=== PATIENT | male | born 1930 | race Caucasian/White ===

== ENCOUNTER 2017-06-05 15:24 | Observation (INO) | payer OTHER ==
--- NOTE | 2017-06-05 15:34 | PDOC ---
Rapid Medical Evaluation Time Seen by Provider: 06/05/17 15:28 Medical Evaluation: Allergies Allergy/AdvReac Type Severity Reaction Status Date / Time No Known Allergies Allergy Verified 05/07/16 17:53 06/05/17 15:28 I have performed a brief in-person evaluation of this patient. The patient presents with a chief complaint of: pacemaker malfunction (needs new battery), worsening fatigue x 1 month Pertinent physical exam findings: crackles left lower lobe I have ordered the following: EKG, CXR, CBC, CMP, Mg, PT/INR, BNP The patient will proceed to the ED for further evaluation.
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
[2017-06-05 16:25] LABS: ANION GAP 5 (8-16); BILIRUBIN,TOTAL 0.8 mg/dL (0.2-1.0); CALCIUM 9.3 mg/dL (8.5-10.1); CO2 32 mmol/L (21-32); CREATININE 1.4 mg/dL (0.7-1.3); GLUCOSE,RANDOM 114 mg/dL (74-106); MAGNESIUM 2.1 mg/dL (1.8-2.4); SGOT/AST 18 U/L (15-37); SGPT/ALT 22 U/L (12-78); TOT PROT 7.2 g/dl (6.4-8.2)
[2017-06-05 16:26] LABS: BASOPHIL 0.2 % (0-2.0); EOSINOPHIL 1.1 % (0-4.5); MCH 31.7 pg (25.7-33.7); MCHC 34.3 g/dl (32.0-35.9); MEAN CELL VOLUME 92.2 fl (80-96); MEAN PLT VOLUME 9.9 fl (7.5-11.1); NEUTROPHILS 57.6 % (42.8-82.8); PLATELET COUNT 91 K/MM3 (134-434); RDW 14.2 % (11.9-15.9); WHITE BLOOD COUNT 6.1 K/mm3 (4.0-10.0)
[2017-06-05 16:28] LABS: ALK PHOS 67 U/L (45-117); CPK 65 IU/L (39-308); TROPONIN I 0.07 ng/ml (0.00-0.05)
[2017-06-05 16:33] LABS: INR 1.15 (0.82-1.09)
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
[2017-06-05] MEDS ORDERED: ATORVASTATIN CA 10 MG TABLET (FP) PO SCH (23:00)
[2017-06-05] MEDS ORDERED: SERTRALINE HCL 50 MG TABLET (FP) PO SCH (23:00)
[2017-06-05] MEDS ORDERED: TAMSULOSIN HCL 0.4 MG CAP.ER.24H (FP) PO SCH (23:00)
[2017-06-05] MEDS ORDERED: METOPROLOL SUCCINATE 50 MG TAB.SR.24H (FP) PO SCH (23:00)
[2017-06-05] MEDS ORDERED: ALBUTEROL SO4 18 GM HFA INHALER IH PRN (23:00)
[2017-06-05 23:03] VITALS: BMI 25.2
[2017-06-06 07:55] LABS: MCH 31.4 pg (25.7-33.7); MCHC 33.7 g/dl (32.0-35.9); MEAN CELL VOLUME 93.2 fl (80-96); MEAN PLT VOLUME 9.6 fl (7.5-11.1); PLATELET COUNT 72 K/MM3 (134-434); RDW 14.1 % (11.9-15.9); WHITE BLOOD COUNT 5.9 K/mm3 (4.0-10.0)
[2017-06-06 09:03] LABS: ANION GAP 7 (8-16); CALCIUM 8.9 mg/dL (8.5-10.1); CO2 29 mmol/L (21-32); GLUCOSE,RANDOM 96 mg/dL (74-106)
[2017-06-06 09:10] LABS: CPK 48 IU/L (39-308); CREATININE 1.2 mg/dL (0.7-1.3); MAGNESIUM 1.8 mg/dL (1.8-2.4); PHOSPHOROUS 2.6 mg/dL (2.5-4.9); TROPONIN I 0.09 ng/ml (0.00-0.05)
[2017-06-06] MEDS ORDERED: PANTOPRAZOLE 20 MG TABLET (FP) PO SCH (10:00)
[2017-06-06] MEDS ORDERED: HOPS PO SCH (10:00)
[2017-06-06] MEDS ORDERED: LISINOPRIL 10 MG TABLET (FP) PO SCH (10:00)
[2017-06-06] MEDS ORDERED: BERBERINE PO SCH (10:00)
[2017-06-06] MEDS ORDERED: VIT D3 VIT K PO SCH (10:00)
[2017-06-06] MEDS ORDERED: [UNRECOGNIZED DRUG - OTHER] PO SCH (10:00)
[2017-06-06] MEDS ORDERED: SPIRONOLACTONE 25 MG TABLET (FP) PO SCH (10:00)
[2017-06-06] MEDS ORDERED: FUROSEMIDE 20 MG TABLET (FP) PO SCH (10:00)
[2017-06-06] MEDS ORDERED: SOLIFENACIN SUCCINATE 5 MG TAB (FP) PO SCH (10:00)
[2017-06-06] MEDS: CALCIUM 500MG/VIT-D 200 UNITS COMBO TABLET (FP) PO SCH ×2 (10:15→14:53)
[2017-06-06] MEDS: CYANOCOBALAMIN 1,000 MCG TABLET (FP) PO SCH ×2 (10:15→14:53)
[2017-06-06] MEDS ORDERED: BUPIVACAINE HCL/PF 0.5% (5MG/ML) 10 ML VIAL ONE (10:23)
[2017-06-06] MEDS ORDERED: LIDOCAINE HCL 1%, 10 MG/ML (20ML VIAL) ONE (10:23)
[2017-06-06 10:24] VITALS: TEMP 97.4
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
[2017-06-06] MEDS ORDERED: ceFAZolin SODIUM 1 GM VIAL IVPB ONE (11:35)
[2017-06-06] MEDS ORDERED: BUPIVACAINE HCL/PF 0.5% (5MG/ML) 10 ML VIAL IJ ONE (11:40)
[2017-06-06] MEDS ORDERED: LIDOCAINE HCL 1%, 10 MG/ML (20ML VIAL) PNB ONE ×2 (11:40)
[2017-06-06] MEDS ORDERED: VANCOMYCIN 1,000 MG in DEXTROSE 5%-WATER - 250 ML IVPB ONE (12:00)
[2017-06-06] MEDS ORDERED: BACITRACIN 50,000 UNITS VIAL NR ONE (12:04)
--- NOTE | 2017-06-06 12:25 | OPR ---
s/p dual chamber ppm pulse generator replacement dx pacemaker battery at end of life estimated blood loss 15 cc anesthesia ronan leal old medtronic pacemaker pulse generator was removed and sent to pathology return to floor no heavy lifting lue no showering x 5 days no heparin/lovenox x 48 hours
--- NOTE | 2017-06-06 14:27 | DS ---
Physical Exam: SUBJECTIVE: Patient seen and examined. slight discomfort at PPM site. dneies CP , sob, fever, chills, N/v/C/D OBJECTIVE: Vital Signs Period Temp Pulse Resp BP Sys/Eugene Pulse Ox Last 24 Hr 97.4 F-98.6 F 65-66 17-20 121-154/75-83 97-99 PHYSICAL EXAM GENERAL: The patient is awake, alert, and fully oriented, in no acute distress. HEAD: Normal with no signs of trauma. EYES: PERRL, extraocular movements intact, sclera anicteric, conjunctiva clear. ENT: Ears normal, nares patent, oropharynx clear without exudates, moist mucous membranes. NECK: Trachea midline, full range of motion, supple. LUNGS: Breath sounds equal, clear to auscultation bilaterally, no wheezes, no crackles, no accessory muscle use. HEART: Regular rate and rhythm, S1, S2 without murmur, rub or gallop. +bandage to L chest with bandage, c/d/i. mildly tender ABDOMEN: Soft, nontender, nondistended, normoactive bowel sounds, no guarding, no rebound, no hepatosplenomegaly, no masses. EXTREMITIES: 2+ pulses, warm, well-perfused, no edema. NEUROLOGICAL: Cranial nerves II through XII grossly intact. Normal speech, gait not observed. PSYCH: Normal mood, normal affect. SKIN: Warm, dry, normal turgor, no rashes or lesions noted. LABS Laboratory Results - last 24 hr 06/05/17 06/05/17 06/05/17 15:45 15:45 15:45 WBC 6.1 RBC 4.17 Hgb 13.2 Hct 38.5 MCV 92.2 MCH 31.7 MCHC 34.3 RDW 14.2 Plt Count 91 L MPV 9.9 Neutrophils % 57.6 Lymphocytes % 34.3 D Monocytes % 6.8 Eosinophils % 1.1 Basophils % 0.2 PT with INR 13.00 H INR 1.15 H Sodium 139 Potassium 4.3 Chloride 102 Carbon Dioxide 32 Anion Gap 5 L BUN 26 H D Creatinine 1.4 H D Creat Clearance w eGFR 48.05 Random Glucose 114 H Calcium 9.3 Phosphorus Magnesium 2.1 D Total Bilirubin 0.8 AST 18 D ALT 22 D Alkaline Phosphatase 67 Creatine Kinase 65 Troponin I 0.07 H D B-Natriuretic Peptide 4651.78 H Total Protein 7.2 Albumin 4.0 D 06/06/17 06/06/17 06:45 06:45 WBC 5.9 RBC 3.93 L Hgb 12.3 Hct 36.6 MCV 93.2 MCH 31.4 MCHC 33.7 RDW 14.1 Plt Count 72 L D MPV 9.6 Neutrophils % No Result Required. Lymphocytes % No Result Required. Monocytes % Eosinophils % Basophils % PT with INR INR Sodium 141 Potassium 3.9 Chloride 105 Carbon Dioxide 29 Anion Gap 7 L BUN 24 H Creatinine 1.2 Creat Clearance w eGFR Random Glucose 96 Calcium 8.9 Phosphorus 2.6 Magnesium 1.8 Total Bilirubin AST ALT Alkaline Phosphatase Creatine Kinase 48 Troponin I 0.09 H B-Natriuretic Peptide Total Protein Albumin HOSPITAL COURSE: Date of Admission:06/05/17 Date of Discharge: 06/06/17 Admitting diagnosis: pacemaker pulse generator failure Pre hospital course 85 year old male with a past medical history that is significant for anemia, HTN , CHF, CAD, PPM who presented to the ED for lethargy. He reports that he has become increasingly lethargic over the past few days to weeks. He had a PPM check today which revealed that he needed a generator change. He reports feeling like he did in past when he needed his battery changed. Subsequent hospital course tele observation. evaluated by EP and generator exchanged. tolerated well with no complication.falsely elevated BNP due to Juni as pt did not exhibit any clinical signs of CHF. mild JUNI which resolved with IV fluids. mild tropinemia likely due to JUNI. d/w cardio who is aware an no intervention at this time. will f/u in office in 2 weeks. Minutes to complete discharge: 45 Discharge Summary Reason For Visit: MALFUNCTION OF CARDIAC PACEMAKER Current Active Problems Malfunction of cardiac pacemaker battery (Acute) Condition: Stable - Instructions Diet, Activity, Other Instructions: You were admitted to the hospital due to the generator on your battery being at end of life. This was changed in the hospital No heavy lifting for 2 weeks. nothing greater than 5 pounds. no showering x 5 days follow up with senior oracle database developer in 2 weeks on May Follow up with your primary care doctor in 1 week Return to the ER if you develop chest pain or shortness of breath. Referrals: Juan Carlos Wang MD [Staff Physician] - Felix García MD [Primary Care Provider] - - Home Medications Comprehensive Discharge Medication List: Ambulatory Orders Lisinopril [Prinivil -] 10 mg PO DAILY 09/06/14 Metoprolol Succinate [Toprol XL -] 50 mg PO HS 09/06/14 Oxybutynin Chloride [Ditropan Xl] 5 mg PO DAILY 09/06/14 Omeprazole 20 mg PO DAILY 06/17/15 Sertraline HCl [Zoloft] 100 mg PO HS 06/17/15 Simvastatin 10 mg PO HS 06/17/15 Tamsulosin HCl 0.4 mg PO DAILY 06/17/15 Albuterol Sulfate Inhaler - [Ventolin HFA Inhaler -] 2 inh PO BID #1 inh Calcium Citrate/Vitamin D3 [Calcium Citrate - Vit D Caplet] 1 each PO DAILY 03/14 Cyanocobalamin (Vitamin B-12) [B-12] 1,000 mcg PO DAILY 06/05/17 Furosemide [Lasix -] 20 mg PO DAILY 06/05/17 Spironolactone 25 mg PO DAILY 06/05/17 Vit D3-Vit K/Berberine/Hops [Ostera Tablet] 1 each PO DAILY 06/05/17 This patient is new to me today: Yes Date on this admission: 06/06/17 Emergency Visit: Yes ED Registration Date: 06/05/17 Care time: The patient presented to the Emergency Department on the above date and was hospitalized for further evaluation of their emergent condition. Critical Care patient: No - Discharge Referral Referred to [facility] No
[2017-06-06 15:58] VITALS: BP 134/70; PULSE 60
--- NOTE | 2017-06-06 16:35 | EKG ---
Test Reason : Blood Pressure : / mmHG Vent. Rate : 065 BPM Atrial Rate : 065 BPM P-R Int : 000 ms QRS Dur : 194 ms QT Int : 514 ms P-R-T Axes : 000 -60 119 degrees QTc Int : 534 ms Atrial-sensed ventricular-paced rhythm with prolonged AV conduction ABNORMAL ECG WHEN COMPARED WITH ECG OF 17-NOV-2015 20:27, VENT. RATE HAS DECREASED BY 4 BPM Confirmed by AISHA KHAN, ISABEL ([id number]) on 06/06/2017 4:34:38 PM Referred By: Confirmed By:ISABEL LEONARD MD
[2017-06-06 17:24] LABS: PLATELET ESTIMATE DECREASED (NORMAL); REACTIVE LYMPHOCYTES 2 % (0-80); SMUDGE CELLS FEW; TOTAL CELLS COUNTED 100
--- NOTE | 2017-06-09 13:46 | OP ---
DATE OF OPERATION: 06/06/2017 PROCEDURE: Dual-chamber pacemaker pulse generator replacement. SURGEON: Nikki Jean-Baptiste MD ANESTHESIOLOGIST: Yair Enciso CRNA No complications. Minimal blood loss. This is an 86-year-old male with a past medical history of complete heart block, status post dual-chamber pacemaker in 1998, status post pulse generator replacement in 2008, coronary artery disease, status post CABG with device now at end-of-life; here for urgent pulse generator replacement. Informed consent was obtained and adequate time for questions and answers was offered to the patient prior to the procedure. PROCEDURE: Preoperative antibiotics were administered. The procedure was performed during continuous ECG monitoring and with both conscious sedation and local anesthesia administered. Oxygen saturation and exhaled CO2 content were monitored continuously. The left infraclavicular region was prepped and broadly draped. Following administration of local anesthesia, an incision was made at the prior incision site in the left chest area superficial to the device. Using a combination of blunt and sharp dissection with cautious attention to hemostasis, the old device generator was successfully explanted. Hemostasis was secured. The leads were tracked and parameters were stable. All sponges were removed and the wound was irrigated with antibiotic solution. The pulse generator was then connected to the proximal portion of the pacemaker lead adaptor and, after confirming the adequacy of the electrode connections, the device was placed in the pocket. The incision was then closed in layers using absorbable sutures. Dermabond was applied. A sterile bandage was applied. Proper device function was confirmed and the patient was transferred to the postprocedure monitoring area for additional observation. Final device settings were as follows: [employer] Accolade [id number] dual-chamber pacemaker, serial No. [id number], implanted June 06, 2017. DDD 60 to 100 beats/min. The atrial lead was a Medtronic [id number], serial No. [id number], implanted February 03, 1999. Bipolar polarity, P-waves 2.0 mV, sensitivity 0.75 mV, atrial impedance 406 Ohms, atrial threshold 0.8 V at 0.5 msec, amplitude 2.5 V at 0.5 msec. ventricular lead was a Medtronic [id number], serial No. [id number], implanted February 03, 1999. Bipolar polarity, R-waves unable to be sensed at 30 beats/min, sensitivity 0.4 mV as previously set, ventricular impedance 544 Ohms, ventricular threshold 0.6 V at 0.5 msec, amplitude 2.5 V at 0.5 msec. NIKKI JEAN-BAPTISTE M.D. [id number] CC: Juan Carlos Wang MD
--- NOTE | 2017-06-10 16:41 | PATH ---
Surgical Pathology Report Patient Name: ARELY TOMAS Med. Rec. #: [id number] /Age/Gender: 1930 (Age: 86) / M Account: [id number] Location: [facility] PEDS/ADOL Taken: 06/06/2017 Received: 06/07/2017 Reported: 06/10/2017 Physicians: Deloris Barrera M.D. Specimen(s) Received EXPLANT PACEMAKER GENERATOR Clinical History End of life generator Final Diagnosis PACEMAKER GENERATOR, EXPLANTATION: WAITER/WAITRESS TAVERN. MACROSCOPIC DIAGNOSIS. Electronically Signed Trinity Bowman M.D. Gross Description Received fresh labeled "explant pacemaker generator," is a 4.6 x 4.2 x 0.7 cm rodriguez metallic device, consistent with a battery. The specimen has the following inscription: "Medtronic Versa [id number] SN: [id number]." No soft tissue is present. No sections are submitted, gross only. /06/07/2017 saudi06/07/2017
== END 2017-06-06 16:49 | disposition home or self-care (01) ==
LOC: JER 15:24 → JERBED 17:35 → J4S 22:41
PROVIDERS: ADMIT Internal Medicine; ATTEND Internal Medicine
PROC: 0JPT0PZ Removal of Cardiac Rhythm Related Device from Trunk Subcutaneous Tissue and Fascia, Open Approach (ICD-10-PCS; principal; 2017-06-05)
PROC: 0JH606Z Insertion of Pacemaker, Dual Chamber into Chest Subcutaneous Tissue and Fascia, Open Approach (ICD-10-PCS; 2017-06-05)
DX: T82.111A Breakdown (mechanical) of cardiac pulse generator (battery), initial encounter (principal); Y83.8 Other surgical procedures as the cause of abnormal reaction of the patient, or of later complication, without mention of misadventure at the time of the procedure; Y92.9 Unspecified place or not applicable; I10 Essential (primary) hypertension; I25.10 Atherosclerotic heart disease of native coronary artery without angina pectoris; I50.9 Heart failure, unspecified; E78.5 Hyperlipidemia, unspecified; D64.9 Anemia, unspecified; F43.10 Post-traumatic stress disorder, unspecified; N40.0 Benign prostatic hyperplasia without lower urinary tract symptoms; R77.8 Other specified abnormalities of plasma proteins; Z45.010 Encounter for checking and testing of cardiac pacemaker pulse generator [battery]; Z85.46 Personal history of malignant neoplasm of prostate; Z95.1 Presence of aortocoronary bypass graft; Z92.3 Personal history of irradiation
CPT/HCPCS: 33228; 36415; 71010-TC; 80048; 80053; 82550; 83735; 83880; 84100; 84484; 85025; 85610; 88300-TC; 93005; 93010; 99285-25; G0378

== ENCOUNTER 2018-11-25 13:14 | Inpatient (IN) | payer OTHER ==
[2018-11-25 13:24] VITALS: BMI 25.1
--- NOTE | 2018-11-25 13:40 | PDOC ---
History of Present Illness - General Chief Complaint: Edema Stated Complaint: SENT BY PCP - History of Present Illness Initial Comments: 11/25/18 14:10 88M pmh of complete heart block s/p Medtronic dual chamber pacemaker 1998 s/p ppc 2008, htn, chf, CAD s/p cabg, presents to the emergency department after being sent by his housing specialist Dr. Talley for worsening bilateral leg edema and shortness of breath on exertion over the course of the past week. No recent change in medication except for decreased Lasix in september from 25 to 20mg because he was complaining of urinating too much. He states that the edema is creeping up all the was up to his lower abdomen. Denies chest pain, dizziness. Past History - Past Medical History Allergies/Adverse Reactions: Allergies Allergy/AdvReac Type Severity Reaction Status Date / Time No Known Allergies Allergy Verified 11/25/18 13:21 Home Medications: Ambulatory Orders Lisinopril [Prinivil -] 10 mg PO DAILY 09/06/14 Oxybutynin Chloride [Ditropan Xl] 5 mg PO DAILY 09/06/14 Omeprazole 20 mg PO DAILY 06/17/15 Simvastatin 10 mg PO HS 06/17/15 Tamsulosin HCl 0.4 mg PO DAILY 06/17/15 Calcium Citrate/Vitamin D3 [Calcium Citrate - Vit D Caplet] 1 each PO DAILY 03/14 Cyanocobalamin (Vitamin B-12) [B-12] 1,000 mcg PO DAILY 06/05/17 Furosemide [Lasix -] 20 mg PO DAILY 06/05/17 Spironolactone 25 mg PO DAILY 06/05/17 Vit D3-Vit K/Berberine/Hops [Ostera Tablet] 1 each PO DAILY 06/05/17 Metoprolol Tartrate 75 mg PO DAILY 11/25/18 Sertraline HCl 75 mg PO DAILY 11/25/18 Anemia: Yes Asthma: No Cancer: Yes (PROSTATE) Cardiac Disorders: Yes CVA: No COPD: No CHF: Yes Dementia: No Diabetes: No GI Disorders: No Disorders: No HTN: Yes Hypercholesterolemia: Yes Liver Disease: No Psychiatric Problems: Yes (PTSD) Seizures: No Thyroid Disease: No - Surgical History Abdominal Surgery: No Appendectomy: No Cardiac Surgery: Yes (PACEMAKER ByPASS) Cholecystectomy: No GI Surgery: Yes (POLYP FROM COLON) Lung Surgery: No Neurologic Surgery: No Orthopedic Surgery: No - Immunization History Immunization Up to Date: Yes - Suicide/Smoking/Psychosocial Hx Smoking History: Former smoker Have you smoked in the past 12 months: No If you are a former smoker, when did you quit?: 1962 Information on smoking cessation initiated: No Hx Alcohol Use: No Drug/Substance Use Hx: No Substance Use Type: None Hx Substance Use Treatment: No *Physical Exam - Vital Signs Last Vital Signs Temp Pulse Resp BP Pulse Ox 98 F 62 20 106/52 L 95 11/25/18 13:21 11/25/18 13:21 11/25/18 13:21 11/25/18 13:21 11/25/18 13:21 ED Treatment Course - LABORATORY CBC & Chemistry Diagram: 11/25/18 14:15 11/25/18 14:15 Medical Decision Making - Medical Decision Making 11/25/18 14:55 This is likely CHF exacerbation due to the patient worsening sob obn exertion and ascending pitting edama. , patient has a history of it. We will r/o pneumonia and CO with cxr and trops +basic labs. POCUS of the abdomen rteveals ascites. Will r/o DVT with b/l duplex. Spoke to Dr. Lua who agrees with the diagnosis of chf exacerbation and treatment with iv lasix, will come see the patient in the ER. 11/25/18 15:48 Bnp more elevated than it's ever been [id number] Elevated trops of 0.09 >0.1 EKG : AV dual dual paced rhythm Abdomen ultrasound and LE duplex pending. Will admit to telemetry for diuresis. Admitted to hospitalist under Dr. Berkowitz. *DC/Admit/Observation/Transfer Diagnosis at time of Disposition: Acute on chronic diastolic CHF (congestive heart failure) - Discharge Dispostion Decision to Admit order: Yes - Referrals - Patient Instructions - Post Discharge Activity
[2018-11-25] MEDS ORDERED: FUROSEMIDE 40 MG/4 ML INJECTABLE VIAL IVPUSH ONE (13:58)
[2018-11-25] MEDS ORDERED: FUROSEMIDE 40 MG/4 ML INJECTABLE VIAL ONE (14:10)
--- NOTE | 2018-11-25 14:30 | PDOC ---
Documentation entered by Essie Del Valle SCRIBE, acting as scribe for Margot Mariee MD. Margot Mariee MD: This documentation has been prepared by the scribe, Essie Del Valle SCRIBE, under my direction and personally reviewed by me in its entirety. I confirm that the documentation accurately reflects all work, treatment, procedures, and medical decision making performed by me. Attending Attestation - Resident Resident Name: Frederick Yang - ED Attending Attestation I have performed the following: I have examined & evaluated the patient, The case was reviewed & discussed with the resident, I agree w/resident's findings & plan - HPI HPI: 11/25/18 14:28 The patient is a 88 year old male with a significant past medical history of anemia, hypertension, hyperlipidemia, CAD s/p triple bypass, CHF, pacemaker, prostate ca, traumatic PTX, pneumonia and PTSD from [place] war who presents to the emergency department with worsening bilateral lower extremity edema worsening x 1 month. The patient reports some associated pain behind his knees with his lower extremity swelling. It is noted that the patient had a dosage change in his lasix from 25 to 20mg, also on spirnolactone. He also endorses CRUZ , with walking x several weeks as well. - Physicial Exam PE: 11/25/18 14:26 Agree with the resident's HPI and PE as documented in the electronic medical record. NAD, well appearing, PERRL, EOMI, nl conjunctiva, anicteric; neck supple. anterior sternotomy scar, Left upper chest wall PPm palpated. lungs with bibasilar crackles, RRR, no murmur. abdomen soft nontender. LOPEZ x4, no focal neuro deficits. 4+ bilateral pitting peripheral edema, up pretibia. normal color for ethnicity, WWP. - Medical Decision Making 11/25/18 14:25 I, Margot Mariee MD, attest that this document has been prepared under my direction and personally reviewed by me in its entirety. I further attest, that it accurately reflects all work, treatment, procedures and medical decision -making performed by me. See HPI for details Vital signs reviewed, wnl. DDx SOB: ACS, PE, PTX, CHF exac, pulmonary edema, pleurisy, pneumonia, viral syndrome. effusion. anemia, electrolyte/metabolic derangements. Prior notes reviewed, including admissions, discharges and consultations. laboratory results and imaging reviewed, basic labs and lytes wnl, Cr 1.6 - close to baseline. mild anemia, will check guaiac. CXR_congestive changes, cardiomegaly, sternotomy scar. Cardiac panel_positive trop, BNP elevation - both higher than previous EKG Atrial Ventricular paced pattern, neg for Sgarbossa's criteria, appropriate discordance, no concordance changes. wide QRS, ST and T wave segments and morphology c/w LBBB/paced pattern.. Nonspecific T wave abnormalities ED course - bedside pocus echo and thoracic exam with scan b lines, severely depressed EF ; pleural effusion on right; abdominal FF suspicious for Ascities. will get official Abdomen US - lasix diuresis with 40mg IV for CHF exacerbation clinically - cards cs with Dr Wang. admit for CHF exacerbation, tele. 11/25/18 15:48 11/25/18 15:52 11/25/18 15:56 Heart Score/ECG Review #1 ECG reviewed & interpreted by me at: 03:45 General ECG Interpretation: Normal Rate Compared to previous ECG there are: No significant change 11/25/18 15:57 EKG Atrial Ventricular paced pattern, neg for Sgarbossa's criteria, appropriate discordance, no concordance changes. wide QRS, ST and T wave segments and morphology c/w LBBB/paced pattern.. Nonspecific T wave abnormalities Procedures - Bedside Ultrasound Bedside Ultrasound: Cardiac Remarks: 11/25/18 15:44 POCUS echo and thoracic exam performed and documented/saved, indication includes chest pain/dyspnea. views obtained (PSLA, PSS, A4, SX, bilateral lung mario). Findings include severely depressed EF <30% on visual estimation with wire visualized in RA/RV chamber, no significant pericardial effusion, +right sided pleural effusion; left sided anterior B lines present. Normal aortic root <4cm. RV<LV. Incidentally with ascites noted in splenorenal and hepatorenal recess extended to suprapubic views with FF noted. Impression: abdominal FF ascites, severely depressed EF c/w heart failure, scant B lines. 11/25/18 15:47
[2018-11-25 14:32] LABS: HEMATOCRIT 31.2 % (35.4-49); HEMOGLOBIN 10.5 GM/dL (11.7-16.9); MCH 31.9 pg (25.7-33.7); MCHC 33.7 g/dl (32.0-35.9); MEAN CELL VOLUME 94.9 fl (80-96); MEAN PLT VOLUME 8.2 fl (7.5-11.1); PLATELET COUNT 80 K/MM3 (134-434); RBC 3.29 M/mm3 (4.00-5.60); WHITE BLOOD COUNT 4.2 K/mm3 (4.0-10.0)
[2018-11-25 15:04] LABS: ALBUMIN 3.4 g/dl (3.4-5.0); ALK PHOS 63 U/L (45-117); ANION GAP 7 MMOL/L (8-16); BILIRUBIN,TOTAL 0.6 mg/dL (0.2-1); BLOOD UREA NITROGEN 47 mg/dL (7-18); CALCIUM 9.6 mg/dL (8.5-10.1); CHLORIDE 105 mmol/L (98-107); CO2 28 mmol/L (21-32); CREATININE 1.6 mg/dL (0.55-1.3); GLUCOSE,RANDOM 103 mg/dL (74-106); N-TERMINAL BNP 12879.6 pg/ml (5-450); POTASSIUM 4.8 mmol/L (3.5-5.1); SGOT/AST 13 U/L (15-37); SGPT/ALT 13 U/L (13-61); SODIUM 140 mmol/L (136-145); TOT PROT 6.2 g/dl (6.4-8.2)
[2018-11-25 15:50] LABS: EPI CELLS 5.6 /HPF (0-5/HPF); URINE APPEARANCE CLEAR; URINE BACTERIA 173.4 /hpf (NEGATIVE); URINE BILIRUBIN NEGATIVE (NEGATIVE); URINE CASTS 11 /lpf (0-8); URINE COLOR YELLOW; URINE GLUCOSE (UA) NEGATIVE (NEGATIVE); URINE KETONE NEGATIVE (NEGATIVE); URINE LEUK ESTERASE 1+ (NEGATIVE); URINE NITRITE NEGATIVE (NEGATIVE); URINE PROTEIN NEGATIVE (NEGATIVE); URINE RBC 23 /hpf (0-4); URINE UROBILINOGEN 0.2 mg/dL (0.2-1.0); URINE WBC 5 /hpf (0-5)
--- NOTE | 2018-11-25 17:11 | PN ---
Teaching Attending Note Name of Resident: Susannah Post ATTENDING PHYSICIAN STATEMENT I saw and evaluated the patient. I reviewed the resident's note and discussed the case with the resident. I agree with the resident's findings and plan as documented with exceptions below. SUBJECTIVE: 88 yom with PMHx of LV systolic/diastolic dysfunction, CAD s/p CABG 1997, CHB s/ p Medtronic change, PPM 1998, changed 2008 and 05/2017, last, HTN, HLD, comes with progressive leg swelling over last 1.5-2 months. Over last 3 weeks, has noticed abdominal distension, bloating, scrotal swelling, and dyspnea with minimal activity, was sent to ED today by Dr. Wang for IV diuresis and further treatment. patient received lasix 40 mg IV in the ED, reports urinated a lot. Overall feels a little better Unsure if remembers to take his lasix daily, does agree to dietary non compliance, salt in diet No fevers, chills, URI like symptoms, chest pain, palpitations, dizziness, abdominal or urinary symptoms. OBJECTIVE: Vital Signs Period Temp Pulse Resp BP Sys/Eugene Pulse Ox Last 24 Hr 98 F 60-62 18-20 106-123/52-65 95-100 Intake & Output 11/22/18 11/23/18 11/24/18 11/25/18 23:59 23:59 23:59 23:59 Weight 180 lb GENERAL: Awake, alert, and fully oriented, in no acute distress. HEAD: Normal with no signs of trauma. EYES: Pupils equal, round and reactive to light, extraocular movements intact, sclera anicteric, conjunctiva clear. No lid lag. EARS, NOSE, THROAT: Ears normal, nares patent, oropharynx clear without exudates. Moist mucous membranes. NECK: soft, supple, neck vein distension LUNGS: bilateral fine rales extending upto mid lungs, good air entry bilaterally HEART: Regular rate and rhythm, normal S1 and S2 ABDOMEN: Soft, distended, NT throughout, epigastric hernia, no voluntary or involuntary guarding or rigidity, positive bowel sounds MUSCULOSKELETAL: no spinal or CVA tenderness, LE ROM limited UPPER EXTREMITIES: 2+ pulses, warm, well-perfused. No cyanosis. No clubbing. No peripheral edema, ecchymotic areas. GENITAL: Scrotal swelling, dias catheter in place LOWER EXTREMITIES: 2+ pitting lower extremity edema with skin induration NEUROLOGICAL: AAOx3, facial symmetry, no pronator drift, power upper 5/5, LE 4/ 5 more on left, sensation intact and symmetric to light touch PSYCHIATRIC: Cooperative. Good eye contact. Appropriate mood and affect. SKIN: Warm, dry, normal turgor, no rashes or lesions noted, normal capillary refill. Home Medications Medication Instructions Recorded Lisinopril [Prinivil -] 10 mg PO DAILY 09/06/14 Oxybutynin Chloride [Ditropan Xl] 5 mg PO DAILY 09/06/14 Omeprazole 20 mg PO DAILY 06/17/15 Simvastatin 10 mg PO HS 06/17/15 Tamsulosin HCl 0.4 mg PO DAILY 06/17/15 Calcium Citrate/Vitamin D3 1 each PO DAILY 06/05/17 [Calcium Citrate - Vit D Caplet] Cyanocobalamin (Vitamin B-12) 1,000 mcg PO DAILY 06/05/17 [B-12] Furosemide [Lasix -] 20 mg PO DAILY 06/05/17 Spironolactone 25 mg PO DAILY 06/05/17 Vit D3-Vit K/Berberine/Hops 1 each PO DAILY 06/05/17 [Ostera Tablet] Metoprolol Tartrate 75 mg PO DAILY 11/25/18 Sertraline HCl 75 mg PO DAILY 11/25/18 Active Medications Atorvastatin Calcium (Lipitor -) 20 mg PO HS [facility] Furosemide (Lasix Injection -) 40 mg IVPB BID@0600,1400 [facility] Heparin Sodium (Porcine) (Heparin -) 5,000 unit SQ TID [facility] Non-Formulary Medication (Oxybutynin Chloride [Ditropan Xl]) 5 mg PO DAILY [facility] Pantoprazole Sodium (Protonix -) 20 mg PO DAILY [facility] Sertraline HCl 25 mg/ (Sertraline HCl 50 mg) 75 mg PO DAILY [facility] Spironolactone (Aldactone -) 25 mg PO DAILY [facility] Tamsulosin HCl (Flomax -) 0.4 mg PO DAILY [facility] Laboratory Results - last 24 hr 11/25/18 11/25/18 11/25/18 14:15 14:15 14:15 WBC 4.2 RBC 3.29 L Hgb 10.5 L Hct 31.2 L MCV 94.9 MCH 31.9 MCHC 33.7 RDW 16.0 H Plt Count 80 L MPV 8.2 D Sodium 140 Potassium 4.8 Chloride 105 Carbon Dioxide 28 Anion Gap 7 L BUN 47 H Creatinine 1.6 H Creat Clearance w eGFR 41.00 Random Glucose 103 Calcium 9.6 Total Bilirubin 0.6 AST 13 L ALT 13 Alkaline Phosphatase 63 Troponin I 0.10 H Cancelled B-Natriuretic Peptide 95524.6 H Cancelled Total Protein 6.2 L Albumin 3.4 Urine Color Urine Appearance Urine pH Ur Specific Orient Urine Protein Urine Glucose (UA) Urine Ketones Urine Blood Urine Nitrite Urine Bilirubin Urine Urobilinogen Ur Leukocyte Esterase Urine WBC (Auto) Urine RBC (Auto) Urine Casts (Auto) U Epithel Cells (Auto) U Sm Round Cell (Auto) Urine Bacteria (Auto) 11/25/18 15:20 WBC RBC Hgb Hct MCV MCH MCHC RDW Plt Count MPV Sodium Potassium Chloride Carbon Dioxide Anion Gap BUN Creatinine Creat Clearance w eGFR Random Glucose Calcium Total Bilirubin AST ALT Alkaline Phosphatase Troponin I B-Natriuretic Peptide Total Protein Albumin Urine Color Yellow Urine Appearance Clear Urine pH 5.0 D Ur Specific Orient 1.007 L Urine Protein Negative Urine Glucose (UA) Negative Urine Ketones Negative Urine Blood 2+ H Urine Nitrite Negative Urine Bilirubin Negative Urine Urobilinogen 0.2 Ur Leukocyte Esterase 1+ H Urine WBC (Auto) 5 Urine RBC (Auto) 23 Urine Casts (Auto) 11 U Epithel Cells (Auto) 5.6 U Sm Round Cell (Auto) None seen Urine Bacteria (Auto) 173.4 CXR with bilateral congestion EKG v pacing ASSESSMENT AND PLAN: 88 yom with PMHx of LV systolic/diastolic dysfunction, CAD s/p CABG 1997, CHB s/ p Medtronic change, PPM 1998, changed 2008 and 05/2017, last, HTN, HLD admitted with CHF -Acute systolic +/- diastolic heart failure exacerbation -SHILPA, suspect from CHF -elevated troponin, suspect demand type II NSTEMI from above, rather than ACS -Asymptomatic bacteruria -CAD s/p CABG -CHB s/p PPM -HTN -HLD Plan: lasix 20 mg IV x 1. Start Lasix 40 mg IV BID, continue aldactone Dias placed in ED. strict I/os, daily weights. 2D echo. Cardiology consult Dr. Wang, case discussed with him Continue flomax/statin/oxybutynin. U/A noted, monitor clinically off abx for now DVTPPX heparin Will need PT eval and CM consult for dispo planning once improved Plan discussed with patient and daughter at bedside in detail, all questions answered. Total admit time spent 65 min.
--- NOTE | 2018-11-25 17:24 | HP ---
CHIEF COMPLAINT: SOB and swelling in legs PCP: Dr García Roto Rooter Operator: Dr Wang HISTORY OF PRESENT ILLNESS: The patient is 88 year old male with a PMH of systolic CHF, triple bypass surgery in 1997, s/p pacemaker in (1998, 2008, 2016- [employer]), HTN, hyperlipidemia, anemia, that presented to the hospital referred by his Roto Rooter Operator. He has been complaining of SOB that has been progressively worse for the past 2 months and got worse especially 3 weeks ago, associated with worsened lower extremity swelling up to his abdomen. He has been sleeping on 3 pillows for long time and reports increased SOB with minimal physical activity. He denies recent medication changes.He states that since his is in the hospital and then rehab, he hasn't been complaint with low sodium diet. He reports weight gain recently but doesn't know how much exactly. The patient denies chest pain, palpitations, dizziness, LOC. He ambulates with walker and lives alone. ER course was notable for: (1)Lasix (2)abdominal US (3)Cardiology consultation PAST MEDICAL HISTORY: as above and nephrolithiasis, s/p prostate Ca, radiation therapy, broken ribs and pneumothorax after fall PAST SURGICAL HISTORY: s/p prostate surgery, abdominal hernia repair x 2, triple bypass, pacemaker Social History: Smoking: Alcohol: Drugs: Family History: Mother: leukemia, at age 33 father: at age 90 sister: non Hodgkin Lymphoma , 3 healthy children, 5 grandchildren Occupation: used to work in communication and in grocery store Allergies No Known Allergies Allergy (Verified 11/25/18 13:21) HOME MEDICATIONS: Home Medications Medication Instructions Recorded Lisinopril [Prinivil -] 10 mg PO DAILY 09/06/14 Oxybutynin Chloride [Ditropan Xl] 5 mg PO DAILY 09/06/14 Omeprazole 20 mg PO DAILY 06/17/15 Simvastatin 10 mg PO HS 06/17/15 Tamsulosin HCl 0.4 mg PO DAILY 06/17/15 Calcium Citrate/Vitamin D3 1 each PO DAILY 06/05/17 [Calcium Citrate - Vit D Caplet] Cyanocobalamin (Vitamin B-12) 1,000 mcg PO DAILY 06/05/17 [B-12] Furosemide [Lasix -] 20 mg PO DAILY 06/05/17 Spironolactone 25 mg PO DAILY 06/05/17 Vit D3-Vit K/Berberine/Hops 1 each PO DAILY 06/05/17 [Ostera Tablet] Metoprolol Tartrate 75 mg PO DAILY 11/25/18 Sertraline HCl 75 mg PO DAILY 11/25/18 REVIEW OF SYSTEMS CONSTITUTIONAL: loss of appetite, weight change Absent: fever, chills, diaphoresis, generalized weakness, malaise, HEENT: Absent: rhinorrhea, nasal congestion, throat pain, CARDIOVASCULAR: peripheral edema Absent: chest pain, syncope, palpitations, irregular heart rate, lightheadedness RESPIRATORY: shortness of breath, dyspnea with exertion, orthopnea, Absent: cough, wheezing, GASTROINTESTINAL: Absent: abdominal pain, abdominal distension, nausea, vomiting, diarrhea, constipation GENITOURINARY: Absent: dysuria, frequency, urgency, hesitancy MUSCULOSKELETAL: back pain Absent: myalgia, arthralgia, joint swelling, neck pain SKIN: rash Absent: itching, pallor NEUROLOGIC: Absent: headache, focal weakness or paresthesias, dizziness, unsteady gait, seizure PSYCHIATRIC: Absent: anxiety, depression PHYSICAL EXAMINATION Vital Signs - 24 hr 11/25/18 11/25/18 13:21 14:57 Temperature 98 F Pulse Rate 62 Pulse Rate [ 60 Apical] Respiratory 20 18 Rate Blood Pressure 106/52 L Blood Pressure 123/65 [Right Arm] O2 Sat by Pulse 95 100 Oximetry (%) GENERAL: Awake, alert, and fully oriented, in no acute distress. HEAD: Normal with no signs of trauma. EYES: Extraocular movements intact EARS, NOSE, THROAT: Oropharynx clear without exudates. Dry mucous membranes. NECK: Normal range of motion, +JVD, or masses. LUNGS: Breath sounds equal. No wheezes, bilateral crackles. No accessory muscle use. HEART: Regular rate and rhythm, normal S1 and S2 without murmur, rub or gallop. ABDOMEN: Soft, nontender, not distended, normoactive bowel sounds, no guarding, no masses, + fluid wave, anasarca in abdomen. MUSCULOSKELETAL: No bony deformities or tenderness. UPPER EXTREMITIES: No peripheral edema. LOWER EXTREMITIES: 2+ pulses, warm,3+ peripheral edema up to abdomen. NEUROLOGICAL: Non focal. Normal speech. Motor 5/5 in upper extremities, 4/5 in lower extremities. PSYCHIATRIC: Cooperative. Good eye contact. Appropriate mood and affect. SKIN: Warm, dry, stage 1 ulcer in sacreal area, venous stasis changes in LE bilaterally, below the knees. Laboratory Results - last 24 hr 11/25/18 11/25/18 11/25/18 14:15 14:15 14:15 WBC 4.2 RBC 3.29 L Hgb 10.5 L Hct 31.2 L MCV 94.9 MCH 31.9 MCHC 33.7 RDW 16.0 H Plt Count 80 L MPV 8.2 D Sodium 140 Potassium 4.8 Chloride 105 Carbon Dioxide 28 Anion Gap 7 L BUN 47 H Creatinine 1.6 H Creat Clearance w eGFR 41.00 Random Glucose 103 Calcium 9.6 Total Bilirubin 0.6 AST 13 L ALT 13 Alkaline Phosphatase 63 Troponin I 0.10 H Cancelled B-Natriuretic Peptide 23274.6 H Cancelled Total Protein 6.2 L Albumin 3.4 Urine Color Urine Appearance Urine pH Ur Specific [place] Urine Protein Urine Glucose (UA) Urine Ketones Urine Blood Urine Nitrite Urine Bilirubin Urine Urobilinogen Ur Leukocyte Esterase Urine WBC (Auto) Urine RBC (Auto) Urine Casts (Auto) U Epithel Cells (Auto) U Sm Round Cell (Auto) Urine Bacteria (Auto) 11/25/18 15:20 WBC RBC Hgb Hct MCV MCH MCHC RDW Plt Count MPV Sodium Potassium Chloride Carbon Dioxide Anion Gap BUN Creatinine Creat Clearance w eGFR Random Glucose Calcium Total Bilirubin AST ALT Alkaline Phosphatase Troponin I B-Natriuretic Peptide Total Protein Albumin Urine Color Yellow Urine Appearance Clear Urine pH 5.0 D Ur Specific [place] 1.007 L Urine Protein Negative Urine Glucose (UA) Negative Urine Ketones Negative Urine Blood 2+ H Urine Nitrite Negative Urine Bilirubin Negative Urine Urobilinogen 0.2 Ur Leukocyte Esterase 1+ H Urine WBC (Auto) 5 Urine RBC (Auto) 23 Urine Casts (Auto) 11 U Epithel Cells (Auto) 5.6 U Sm Round Cell (Auto) None seen Urine Bacteria (Auto) 173.4 ASSESSMENT/PLAN: The patient is 88 year old male with a PMH of systolic CHF, triple bypass surgery in 1997, s/p pacemaker in (1998, 2008, 2016- [employer]), HTN, hyperlipidemia, anemia admitted to telemetry for acute on chronic CHF exacerbation. Acute CHF exacerbation: -likely due to non compliance to medications, also r/o acs -ECHO ordered, will trend troponin, first one 0.11 -f/u Cardiology recommendations -cardiac monitoring -strict I&Os -daily weights -low sodium diet -given Lasix 20 mg IV ONCE in ED, will continue 40 mg IV BID -cont Spironolactone SHILPA: -likely prerenal -will cont to avoid nephrotoxins -abdominal US ordered CAD/HTN: -cont home medications hyperlipidemia: -continue statins BPH: -cont Flomax Depression: -cont Sertraline DVT PPX; Heparin sq Dispo: telemetry monitoring Problem List - Problem (1) Acute on chronic systolic and diastolic heart failure, NYHA class 2 Code(s): I50.43 - ACUTE ON CHRONIC COMBINED SYSTOLIC AND DIASTOLIC HRT FAIL (2) Anemia Code(s): D64.9 - ANEMIA, UNSPECIFIED (3) CAD (coronary artery disease) Code(s): I25.10 - ATHSCL HEART DISEASE OF [place] CORONARY ARTERY W/O ANG PCTRS (4) CHF exacerbation Code(s): I50.9 - HEART FAILURE, UNSPECIFIED (5) HTN (hypertension) Code(s): I10 - ESSENTIAL (PRIMARY) HYPERTENSION (6) History of permanent cardiac pacemaker placement Code(s): Z95.0 - PRESENCE OF CARDIAC PACEMAKER (7) Hyperlipidemia Code(s): E78.5 - HYPERLIPIDEMIA, UNSPECIFIED (8) Malfunction of cardiac pacemaker battery Code(s): T82.191A - [facility] COMPL OF CARDIAC PULSE GENERATOR (BATTERY), INIT ENCNTR Visit type - Emergency Visit Emergency Visit: Yes ED Registration Date: 11/25/18 Care time: The patient presented to the Emergency Department on the above date and was hospitalized for further evaluation of their emergent condition. - New Patient This patient is new to me today: Yes Date on this admission: 11/25/18 - Critical Care Critical Care patient: No
[2018-11-25] MEDS: ATORVASTATIN CA 20 MG TABLET (FP) PO SCH (21:53)
[2018-11-25] MEDS: HEPARIN NA (PORCINE) 5,000 UNITS/ML 1ML VIAL SQ SCH (21:53)
[2018-11-25] MEDS ORDERED: FUROSEMIDE 40 MG/4 ML INJECTABLE VIAL IVPB ONE (22:00)
[2018-11-25] MEDS ORDERED: ATORVASTATIN CA 10 MG TABLET (FP) PO SCH (22:00)
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
[2018-11-26] MEDS: FUROSEMIDE 100 MG/10 ML INJECTABLE VIAL IVPB SCH ×2 (05:47→13:22)
[2018-11-26] MEDS: HEPARIN NA (PORCINE) 5,000 UNITS/ML 1ML VIAL SQ SCH ×3 (05:47→21:46)
[2018-11-26] MEDS: PANTOPRAZOLE 20 MG TABLET (FP) PO SCH ×2 (05:47→10:34)
[2018-11-26 07:57] LABS: BASO % 0.4 % (0-2.0); EOS % 0.4 % (0-4.5); HEMATOCRIT 30.9 % (35.4-49); HEMOGLOBIN 10.6 GM/dL (11.7-16.9); LYMPH % 29.9 % (8-40); MCHC 34.4 g/dl (32.0-35.9); MEAN CELL VOLUME 93.1 fl (80-96); MEAN PLT VOLUME 10.3 fl (7.5-11.1); MONO % 5.6 % (3.8-10.2); NEUT % 63.7 % (42.8-82.8); PLATELET COUNT 92 K/MM3 (134-434); RBC 3.32 M/mm3 (4.00-5.60); WHITE BLOOD COUNT 4.9 K/mm3 (4.0-10.0)
[2018-11-26 08:30] LABS: ALBUMIN 3.3 g/dl (3.4-5.0); ALK PHOS 60 U/L (45-117); ANION GAP 6 MMOL/L (8-16); BILIRUBIN,TOTAL 0.9 mg/dL (0.2-1); BLOOD UREA NITROGEN 45 mg/dL (7-18); CALCIUM 9.4 mg/dL (8.5-10.1); CHLORIDE 104 mmol/L (98-107); CO2 29 mmol/L (21-32); CREATININE 1.6 mg/dL (0.55-1.3); GLUCOSE,RANDOM 97 mg/dL (74-106); MAGNESIUM 1.9 mg/dL (1.8-2.4); POTASSIUM 4.2 mmol/L (3.5-5.1); SGOT/AST 13 U/L (15-37); SGPT/ALT 13 U/L (13-61); SODIUM 139 mmol/L (136-145)
[2018-11-26 09:53] LABS: ANISOCYTOSIS 0; MACROCYTOSIS 0; PLATELET ESTIMATE DECREASED
[2018-11-26] MEDS ORDERED: LISINOPRIL PO SCH (10:00)
[2018-11-26] MEDS ORDERED: SERTRALINE HCL 50 MG TABLET (FP) PO SCH (10:00)
[2018-11-26] MEDS ORDERED: SERTRALINE HCL 50 MG TABLET (FP) ONE (10:11)
[2018-11-26] MEDS ORDERED: SERTRALINE HCL 25 MG TABLET (FP) ONE (10:12)
[2018-11-26] MEDS: SERTRALINE HCL PO SCH (10:34)
[2018-11-26] MEDS: SPIRONOLACTONE 25 MG TABLET (FP) PO SCH (10:34)
[2018-11-26] MEDS: TAMSULOSIN HCL 0.4 MG CAP PO SCH (10:34)
[2018-11-26] MEDS: SOLIFENACIN SUCCINATE 5 MG TAB (FP) PO SCH (10:34)
--- NOTE | 2018-11-26 10:34 | EKG ---
Test Reason : Blood Pressure : / mmHG Vent. Rate : 060 BPM Atrial Rate : 060 BPM P-R Int : 188 ms QRS Dur : 200 ms QT Int : 544 ms P-R-T Axes : 000 -55 121 degrees QTc Int : 544 ms AV dual-paced rhythm ABNORMAL ECG WHEN COMPARED WITH ECG OF 05-JUN-2017 16:49, VENT. RATE HAS DECREASED BY 5 BPM Confirmed by RJ KHAN, ALLYSON ([id number]) on 11/26/2018 10:33:27 AM Referred By: Confirmed By:ALLYSON DE LA ROSA MD
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
--- NOTE | 2018-11-26 14:00 | ECHO ---
Name: ARELY TOMAS Exam:Adult Echocardiogram Study Date: 11/26/2018 10:44 AM Age: 88 yrs Reason For Study: CHF Height: 71 in Weight: 180 lb BSA: 2.0 m2 MMode/2D Measurements & Calculations IVSd: 2.0 cm Ao root diam: 3.1 cm LVIDd: 3.7 cm LA dimension: 4.5 cm LVIDs: 3.2 cm LVPWd: 1.4 cm EDV(Teich): 59.1 ml LVOT diam: 2.0 cm ESV(Teich): 40.5 ml LAV (MOD-bp): 89.1 ml Doppler Measurements & Calculations MV E max nima: 82.0 cm/sec Ao V2 max: 153.4 cm/sec MV A max nima: 39.8 cm/sec Ao max P.4 mmHg MV E/A: 2.1 MV dec time: 0.09 sec ALFONSO(V,D): 1.7 cm2 LV V1 max P.8 mmHg MR max nima: 395.1 cm/sec LV V1 max: 82.9 cm/sec MR max P.9 mmHg TR max nima: 346.8 cm/sec PA V2 max: 89.6 cm/sec TR max P.4 mmHg PA max P.2 mmHg Med Peak E' Nima: 3.9 cm/sec PI Vmax: 164.2 cm/sec Med E/e': 20.9 Lat Peak E' Nima: 6.6 cm/sec Lat E/e': 12.4 Procedure A two-dimensional transthoracic echocardiogram with color flow and Doppler was performed. Left Ventricle There is moderate concentric left ventricular hypertrophy. Left ventricular systolic function is mode rately reduced. There is moderate global hypokinesis of the left ventricle. Septal motion is consistent with conduction abnormality. Right Ventricle The right ventricle is not well visualized. There is a pacemaker lead in the right ventricle. Atria The left atrium is moderately dilated. The right atrium is moderately dilated. Mitral Valve There is mild mitral valve thickening. There is no mitral valve stenosis. There is moderate mitral regurgitation. Tricuspid Valve There is mild tricuspid valve thickening. No significant tricuspid stenosis. There is severe tricuspi d regurgitation. Right ventricular systolic pressure is elevated at 50-60mmHg. Aortic Valve The aortic valve is trileaflet. There is mild to moderate aortic valve thickening. No hemodynamically significant valvular aortic stenosis. No aortic regurgitation is present. Pulmonic Valve The pulmonic valve is not well visualized. There is no pulmonic valvular stenosis. Mild pulmonic valv ular regurgitation. Great Vessels The aortic root is normal size. Pericardium/Pleura There is no pericardial effusion. Interpretation Summary Right ventricular systolic pressure is elevated at 50-60mmHg. The aortic valve is trileaflet. There is mild to moderate aortic valve thickening. Mild pulmonic valvular regurgitation. There is a pacemaker lead in the right ventricle. There is moderate concentric left ventricular hypertrophy. Left ventricular systolic function is moderately reduced. There is moderate global hypokinesis of the left ventricle. Septal motion is consistent with conduction abnormality. The left atrium is moderately dilated. The right atrium is moderately dilated. There is severe tricuspid regurgitation. There is moderate mitral regurgitation. MD Ariel Fox 11/26/2018 02:00 PM
--- NOTE | 2018-11-26 14:07 | PN ---
Teaching Attending Note Name of Resident: Susannah Post ATTENDING PHYSICIAN STATEMENT I saw and evaluated the patient. I reviewed the resident's note and discussed the case with the resident. I agree with the resident's findings and plan as documented with exceptions below. SUBJECTIVE: Patient seen and examined. Urinating a lot, feels better. Reports pain in the lower back at the site of bed sore. OBJECTIVE: Vital Signs Period Temp Pulse Resp BP Sys/Eugene Pulse Ox Last 24 Hr 68.2 F-98.1 F 60-69 16-28 104-138/45-76 99-100 Intake & Output 11/23/18 11/24/18 11/25/18 11/26/18 23:59 23:59 23:59 23:59 Output Total 4000 Balance -4000 Weight 180 lb 178 lb 12.8 oz General: sitting in bed in no acute distress Neck: soft, supple, neck vein distension Chest: bibasilar fine rales, improved exam and air entry Abdomen;Soft, improved distension, epigastric hernia, non tender Extremities; improved pedal pitting edema with skin induration, back: stage I decub ulcer, no active discharge Home Medications Medication Instructions Recorded Lisinopril [Prinivil -] 10 mg PO DAILY 09/06/14 Oxybutynin Chloride [Ditropan Xl] 5 mg PO DAILY 09/06/14 Omeprazole 20 mg PO DAILY 06/17/15 Simvastatin 10 mg PO HS 06/17/15 Tamsulosin HCl 0.4 mg PO DAILY 06/17/15 Calcium Citrate/Vitamin D3 1 each PO DAILY 06/05/17 [Calcium Citrate - Vit D Caplet] Cyanocobalamin (Vitamin B-12) 1,000 mcg PO DAILY 06/05/17 [B-12] Furosemide [Lasix -] 20 mg PO DAILY 06/05/17 Spironolactone 25 mg PO DAILY 06/05/17 Vit D3-Vit K/Berberine/Hops 1 each PO DAILY 06/05/17 [Ostera Tablet] Metoprolol Tartrate 75 mg PO DAILY 11/25/18 Sertraline HCl 75 mg PO DAILY 11/25/18 Active Medications Atorvastatin Calcium (Lipitor -) 20 mg PO HS [facility] Last Admin: 11/25/18 21:53 Dose: 20 mg Furosemide (Lasix Injection -) 40 mg IVPB BID@0600,1400 [facility] Last Admin: 11/26/18 13:22 Dose: 40 mg Heparin Sodium (Porcine) (Heparin -) 5,000 unit SQ TID [facility] Last Admin: 11/26/18 13:23 Dose: 5,000 unit Pantoprazole Sodium (Protonix -) 20 mg PO DAILY [facility] Last Admin: 11/26/18 10:34 Dose: 20 mg Sertraline HCl 25 mg/ (Sertraline HCl 50 mg) 75 mg PO DAILY [facility] Last Admin: 11/26/18 10:34 Dose: 75 mg Solifenacin (Vesicare -) 5 mg PO DAILY [facility] Last Admin: 11/26/18 10:34 Dose: 5 mg Spironolactone (Aldactone -) 25 mg PO DAILY [facility] Last Admin: 11/26/18 10:34 Dose: 25 mg Tamsulosin HCl (Flomax -) 0.4 mg PO DAILY [facility] Last Admin: 11/26/18 10:34 Dose: 0.4 mg Laboratory Results - last 24 hr 11/25/18 11/25/18 11/25/18 14:15 15:20 20:30 WBC RBC Hgb Hct MCV MCH MCHC RDW Plt Count MPV Absolute Neuts (auto) Neutrophils % Neutrophils % (Manual) Band Neutrophils % Lymphocytes % Lymphocytes % (Manual) Monocytes % Monocytes % (Manual) Eosinophils % Eosinophils % (Manual) Basophils % Basophils % (Manual) Myelocytes % (Man) Promyelocytes % (Man) Blast Cells % (Manual) Nucleated RBC % Metamyelocytes Hypochromia Platelet Estimate Polychromasia Poikilocytosis Anisocytosis Microcytosis Macrocytosis Schistocytes Sodium 140 Potassium 4.8 Chloride 105 Carbon Dioxide 28 Anion Gap 7 L BUN 47 H Creatinine 1.6 H Creat Clearance w eGFR 41.00 Random Glucose 103 Calcium 9.6 Phosphorus Magnesium Ferritin Total Bilirubin 0.6 AST 13 L ALT 13 Alkaline Phosphatase 63 Troponin I 0.10 H 0.10 H B-Natriuretic Peptide 76179.6 H Total Protein 6.2 L Albumin 3.4 Vitamin B12 Urine Color Yellow Urine Appearance Clear Urine pH 5.0 D Ur Specific [place] 1.007 L Urine Protein Negative Urine Glucose (UA) Negative Urine Ketones Negative Urine Blood 2+ H Urine Nitrite Negative Urine Bilirubin Negative Urine Urobilinogen 0.2 Ur Leukocyte Esterase 1+ H Urine WBC (Auto) 5 Urine RBC (Auto) 23 Urine Casts (Auto) 11 U Epithel Cells (Auto) 5.6 U Sm Round Cell (Auto) None seen Urine Bacteria (Auto) 173.4 11/26/18 11/26/18 11/26/18 04:00 05:48 05:48 WBC 4.9 RBC 3.32 L Hgb 10.6 L Hct 30.9 L MCV 93.1 MCH 32.0 MCHC 34.4 RDW 16.0 H Plt Count 92 L MPV 10.3 D Absolute Neuts (auto) 3.2 Neutrophils % 63.7 Neutrophils % (Manual) 70.7 D Band Neutrophils % 0.0 Lymphocytes % 29.9 Lymphocytes % (Manual) 21.2 D Monocytes % 5.6 Monocytes % (Manual) 4 Eosinophils % 0.4 Eosinophils % (Manual) 0.0 D Basophils % 0.4 Basophils % (Manual) 2.0 Myelocytes % (Man) 0 Promyelocytes % (Man) 0 Blast Cells % (Manual) 0 Nucleated RBC % 0 Metamyelocytes 0 Hypochromia 0 Platelet Estimate Decreased Polychromasia 0 Poikilocytosis 2+ Anisocytosis 0 Microcytosis 0 Macrocytosis 0 Schistocytes 1+ Sodium 139 Potassium 4.2 Chloride 104 Carbon Dioxide 29 Anion Gap 6 L BUN 45 H Creatinine 1.6 H Creat Clearance w eGFR 41.00 Random Glucose 97 Calcium 9.4 Phosphorus 3.0 Magnesium 1.9 Ferritin 127.4 Total Bilirubin 0.9 AST 13 L ALT 13 Alkaline Phosphatase 60 Troponin I 0.13 H B-Natriuretic Peptide Total Protein 6.0 L Albumin 3.3 L Vitamin B12 522 Urine Color Urine Appearance Urine pH Ur Specific [place] Urine Protein Urine Glucose (UA) Urine Ketones Urine Blood Urine Nitrite Urine Bilirubin Urine Urobilinogen Ur Leukocyte Esterase Urine WBC (Auto) Urine RBC (Auto) Urine Casts (Auto) U Epithel Cells (Auto) U Sm Round Cell (Auto) Urine Bacteria (Auto) 2Decho results reviewed Telemetnry with V paced rhythm ASSESSMENT AND PLAN: 88 yom with PMHx of LV systolic/diastolic dysfunction, CAD s/p CABG 1997, CHB s/ p [employer] change, PPM 1998, changed 2008 and 05/2017, last, HTN, HLD admitted with CHF -Acute systolic/diastolic heart failure exacerbation -SHILPA, suspect from CHF -Elevated troponin, suspect demand type II NSTEMI from above, rather than ACS -Asymptomatic bacteruria -Stage I decub ulcer -CAD s/p CABG -CHB s/p PPM -HTN -HLD Plan: Clinically improved. Continue lasix 40 mg IV BID, strict I/os, daily weights. Continue aldactone. Cardiology input noted. 2D echo results reviewed. PPM interrogation. Tn flat. Continue flomax/statin/oxybutynin. U/A noted, monitor clinically off abx for now Voiding trial in 24 hours once swelling improved. Decub wound care/precautions. DVTPPX heparin PT eval and CM consult for d/c planning Plan discussed with patient and nursing in detail, all questions answered.
--- NOTE | 2018-11-26 16:14 | PN ---
Physical Exam: SUBJECTIVE: Patient seen and examined. He is feeling good, swelling much improved today OBJECTIVE: Vital Signs Period Temp Pulse Resp BP Sys/Eugene Pulse Ox Last 24 Hr 68.2 F-98.1 F 60-69 16-28 94-138/45-76 99-99 GENERAL: The patient is awake, alert, and fully oriented, in no acute distress, lying comfortably in bed. HEAD: Normal with no signs of trauma. EYES: Extraocular movements intact ENT: Oropharynx clear without exudates, moist mucous membranes. NECK: Trachea midline, full range of motion, supple. LUNGS:Bilateral crackles, no wheezes, no accessory muscle use. HEART: Regular rate and rhythm, S1, S2 without murmur, rub or gallop. ABDOMEN: Soft, nontender, normoactive bowel sounds, no guarding, no rebound, edema present, bulging in epigastrium when coughing. EXTREMITIES: 2+ pulses, warm, 1+ edema up to the thighs NEUROLOGICAL: Normal speech, non focal, gait not observed. PSYCH: Normal mood, normal affect. SKIN: Warm, dry, venous stasis changes in lower extremity b/l, vertical scar in mid chest. Laboratory Results - last 24 hr 11/25/18 11/25/18 11/26/18 15:20 20:30 04:00 WBC RBC Hgb Hct MCV MCH MCHC RDW Plt Count MPV Absolute Neuts (auto) Neutrophils % Neutrophils % (Manual) Band Neutrophils % Lymphocytes % Lymphocytes % (Manual) Monocytes % Monocytes % (Manual) Eosinophils % Eosinophils % (Manual) Basophils % Basophils % (Manual) Myelocytes % (Man) Promyelocytes % (Man) Blast Cells % (Manual) Nucleated RBC % Metamyelocytes Hypochromia Platelet Estimate Polychromasia Poikilocytosis Anisocytosis Microcytosis Macrocytosis Schistocytes Sodium Potassium Chloride Carbon Dioxide Anion Gap BUN Creatinine Creat Clearance w eGFR Random Glucose Calcium Phosphorus Magnesium Ferritin Total Bilirubin AST ALT Alkaline Phosphatase Troponin I 0.10 H 0.13 H Total Protein Albumin Vitamin B12 U Sm Round Cell (Auto) None seen 11/26/18 11/26/18 05:48 05:48 WBC 4.9 RBC 3.32 L Hgb 10.6 L Hct 30.9 L MCV 93.1 MCH 32.0 MCHC 34.4 RDW 16.0 H Plt Count 92 L MPV 10.3 D Absolute Neuts (auto) 3.2 Neutrophils % 63.7 Neutrophils % (Manual) 70.7 D Band Neutrophils % 0.0 Lymphocytes % 29.9 Lymphocytes % (Manual) 21.2 D Monocytes % 5.6 Monocytes % (Manual) 4 Eosinophils % 0.4 Eosinophils % (Manual) 0.0 D Basophils % 0.4 Basophils % (Manual) 2.0 Myelocytes % (Man) 0 Promyelocytes % (Man) 0 Blast Cells % (Manual) 0 Nucleated RBC % 0 Metamyelocytes 0 Hypochromia 0 Platelet Estimate Decreased Polychromasia 0 Poikilocytosis 2+ Anisocytosis 0 Microcytosis 0 Macrocytosis 0 Schistocytes 1+ Sodium 139 Potassium 4.2 Chloride 104 Carbon Dioxide 29 Anion Gap 6 L BUN 45 H Creatinine 1.6 H Creat Clearance w eGFR 41.00 Random Glucose 97 Calcium 9.4 Phosphorus 3.0 Magnesium 1.9 Ferritin 127.4 Total Bilirubin 0.9 AST 13 L ALT 13 Alkaline Phosphatase 60 Troponin I Total Protein 6.0 L Albumin 3.3 L Vitamin B12 522 U Sm Round Cell (Auto) Active Medications Generic Name Dose Route Start Last Admin Trade Name Freq PRN Reason Stop Dose Admin Atorvastatin Calcium 20 mg 11/25/18 22:00 11/25/18 21:53 Lipitor - PO 20 mg HS [facility] Administration Furosemide 40 mg 11/26/18 06:00 11/26/18 13:22 Lasix Injection - IVPB 40 mg BID@0600,1400 [facility] Administration Heparin Sodium (Porcine) 5,000 unit 11/25/18 22:00 11/26/18 13:23 Heparin - SQ 5,000 unit TID [facility] Administration Pantoprazole Sodium 20 mg 11/26/18 06:00 11/26/18 10:34 Protonix - PO 20 mg DAILY [facility] Administration Sertraline HCl 25 mg/ 75 mg 11/26/18 10:00 11/26/18 10:34 Sertraline HCl 50 mg PO 75 mg DAILY [facility] Administration Solifenacin 5 mg 11/26/18 10:00 11/26/18 10:34 Vesicare - PO 5 mg DAILY [facility] Administration Spironolactone 25 mg 11/26/18 10:00 11/26/18 10:34 Aldactone - PO 25 mg DAILY [facility] Administration Tamsulosin HCl 0.4 mg 11/26/18 10:00 11/26/18 10:34 Flomax - PO 0.4 mg DAILY [facility] Administration ASSESSMENT/PLAN: The patient is 88 year old male with a PMH of systolic CHF, triple bypass surgery in 1997, s/p pacemaker, HTN, hyperlipidemia, anemia admitted to telemetry for acute on chronic CHF exacerbation. Acute CHF exacerbation: -likely due to non compliance to medications, also r/o acs -ECHO reviewed, -f/u Cardiology recommendations, [employer] interrogated -cardiac monitoring -strict I&Os, -4000 ml in 24 hrs -daily weights -low sodium diet -given Lasix 20 mg IV ONCE in ED, will continue 40 mg IV BID -cont Spironolactone Troponinemia: -likely due to demand ischemia -stable trend SHILPA: -likely prerenal -will cont to avoid nephrotoxins -abdominal US ordered CAD/HTN: -cont home medications hyperlipidemia: -continue statins BPH: -cont Flomax Depression: -cont Sertraline DVT PPX; Heparin sq Dispo: telemetry monitoring Problem List - Problems (1) Acute on chronic systolic and diastolic heart failure, NYHA class 2 Code(s): I50.43 - ACUTE ON CHRONIC COMBINED SYSTOLIC AND DIASTOLIC HRT FAIL (2) Anemia Code(s): D64.9 - ANEMIA, UNSPECIFIED (3) CAD (coronary artery disease) Code(s): I25.10 - ATHSCL HEART DISEASE OF [place] CORONARY ARTERY W/O ANG PCTRS (4) CHF exacerbation Code(s): I50.9 - HEART FAILURE, UNSPECIFIED (5) HTN (hypertension) Code(s): I10 - ESSENTIAL (PRIMARY) HYPERTENSION (6) History of permanent cardiac pacemaker placement Code(s): Z95.0 - PRESENCE OF CARDIAC PACEMAKER (7) Hyperlipidemia Code(s): E78.5 - HYPERLIPIDEMIA, UNSPECIFIED (8) Malfunction of cardiac pacemaker battery Code(s): T82.191A - [facility] COMPL OF CARDIAC PULSE GENERATOR (BATTERY), INIT ENCNTR Visit type - Emergency Visit Emergency Visit: Yes ED Registration Date: 11/25/18 Care time: The patient presented to the Emergency Department on the above date and was hospitalized for further evaluation of their emergent condition. - New Patient This patient is new to me today: No - Critical Care Critical Care patient: No - Discharge Referral Referred to [facility] Med P.C.: No
[2018-11-26] MEDS: ATORVASTATIN CA 20 MG TABLET (FP) PO SCH (21:46)
[2018-11-27 04:11] LABS: SERUM IRON SATURATION 15 % (15-55); TOTAL IRON BINDING CAPACITY 259 ug/dL (250-450); UIBC 221 ug/dL (111-343)
[2018-11-27] MEDS: HEPARIN NA (PORCINE) 5,000 UNITS/ML 1ML VIAL SQ SCH ×3 (05:52→21:47)
[2018-11-27] MEDS: FUROSEMIDE 100 MG/10 ML INJECTABLE VIAL IVPB SCH (05:53)
[2018-11-27 07:35] LABS: BASO % 0.6 % (0-2.0); EOS % 0.4 % (0-4.5); HEMOGLOBIN 10.4 GM/dL (11.7-16.9); LYMPH % 29.9 % (8-40); MCH 31.7 pg (25.7-33.7); MCHC 33.7 g/dl (32.0-35.9); MEAN CELL VOLUME 93.8 fl (80-96); MEAN PLT VOLUME 10.7 fl (7.5-11.1); MONO % 4.2 % (3.8-10.2); NEUT % 64.9 % (42.8-82.8); PLATELET COUNT 85 K/MM3 (134-434); WHITE BLOOD COUNT 4.4 K/mm3 (4.0-10.0)
[2018-11-27 08:13] LABS: ALBUMIN 3.3 g/dl (3.4-5.0); ALK PHOS 61 U/L (45-117); ANION GAP 6 MMOL/L (8-16); BILIRUBIN,TOTAL 0.8 mg/dL (0.2-1); BLOOD UREA NITROGEN 38 mg/dL (7-18); CALCIUM 9.4 mg/dL (8.5-10.1); CHLORIDE 102 mmol/L (98-107); CO2 33 mmol/L (21-32); CREATININE 1.5 mg/dL (0.55-1.3); GLUCOSE,RANDOM 108 mg/dL (74-106); POTASSIUM 3.8 mmol/L (3.5-5.1); SGOT/AST 13 U/L (15-37); SGPT/ALT 12 U/L (13-61); SODIUM 141 mmol/L (136-145); TOT PROT 5.9 g/dl (6.4-8.2)
[2018-11-27] MEDS ORDERED: SERTRALINE HCL 50 MG TABLET (FP) ONE (09:31)
[2018-11-27] MEDS ORDERED: SERTRALINE HCL 25 MG TABLET (FP) ONE (09:31)
[2018-11-27] MEDS: SERTRALINE HCL PO SCH (09:49)
[2018-11-27] MEDS: SOLIFENACIN SUCCINATE 5 MG TAB (FP) PO SCH (09:49)
[2018-11-27] MEDS: PANTOPRAZOLE 20 MG TABLET (FP) PO SCH (09:50)
[2018-11-27] MEDS: TAMSULOSIN HCL 0.4 MG CAP PO SCH (09:50)
[2018-11-27] MEDS: SPIRONOLACTONE 25 MG TABLET (FP) PO SCH (09:50)
[2018-11-27 11:26] LABS: ANISOCYTOSIS 1+; MACROCYTOSIS 1+; OVALOCYTE 1+; PLATELET ESTIMATE DECREASED
--- NOTE | 2018-11-27 12:07 | PN ---
Progress Note, Physician Chief Complaint: Pt A&OX3; with help of physical therapist and walker, ambulates several times back and forth in the room without significant dyspnea. History of Present Illness: The patient is a 88 year old white man with a significant past medical history of anemia, hypertension, hyperlipidemia, CAD s/p triple bypass, systolic CHF, [employer] DDDR pacemaker, prostate ca, traumatic PTX, pneumonia and PTSD from [place] who presents to the emergency department with worsening bilateral lower extremity edema worsening x 1 month. The patient reports some associated pain behind his knees with his lower extremity swelling. It is noted that the patient had a dosage change in his lasix from 25 to 20mg, also on spirnolactone. He also endorses CRUZ, with walking x several weeks as well. - Current Medication List Current Medications: Active Medications Atorvastatin Calcium (Lipitor -) 20 mg PO HS [facility] Last Admin: 11/26/18 21:46 Dose: 20 mg Furosemide (Lasix Injection -) 40 mg IVPB BID@0600,1400 [facility] Last Admin: 11/27/18 05:53 Dose: 40 mg Heparin Sodium (Porcine) (Heparin -) 5,000 unit SQ TID [facility] Last Admin: 11/27/18 05:52 Dose: 5,000 unit Pantoprazole Sodium (Protonix -) 20 mg PO DAILY [facility] Last Admin: 11/27/18 09:50 Dose: 20 mg Sertraline HCl 25 mg/ (Sertraline HCl 50 mg) 75 mg PO DAILY [facility] Last Admin: 11/27/18 09:49 Dose: 75 mg Solifenacin (Vesicare -) 5 mg PO DAILY [facility] Last Admin: 11/27/18 09:49 Dose: 5 mg Spironolactone (Aldactone -) 25 mg PO DAILY [facility] Last Admin: 11/27/18 09:50 Dose: 25 mg Tamsulosin HCl (Flomax -) 0.4 mg PO DAILY [facility] Last Admin: 11/27/18 09:50 Dose: 0.4 mg - Objective Vital Signs: Vital Signs Temperature 98.3 F 11/27/18 09:00 Pulse Rate 66 11/27/18 09:00 Respiratory Rate 20 11/27/18 09:00 Blood Pressure 102/45 L 11/27/18 09:00 O2 Sat by Pulse Oximetry (%) 98 11/27/18 09:00 Constitutional: Yes: Anxious Cardiovascular: Yes: S1, S2 (split) Labs: CBC, BMP 11/27/18 05:40 11/27/18 05:40 Problem List - Problems (1) Acute on chronic systolic and diastolic heart failure, NYHA class 2 Assessment/Plan: Etiology of acute CHF likelky principally due to noncompliance to medications ( although pt says he has a "good system" for taking his pills, he admits to missing doses, "but never for more than 2 days") and diet, and to emotional stress (significant PTSD ==[place] [employer] vet--had to ask to be moved from intial room here because roommate kept talking atout service and it made Marito "very depressed"; he is also under great stress from worry over his 's illness). Pt is significantly improved: legs are much less swollen and more mobile, much less swelling of abdomen, emily, scrotum, and legs. His mobility has dramatically improved, and he is much less SOB. No JVD; scattered rales. IV furosemide: decrease TO 20 MG BID Restarted metoprolol, lisinopril, and spironolactone. F/u BUN/Cr, carefully due to present renal dysfunction, Is and oS, daily weightm , electrolytes. Pt for renal US. ECHO: moderately decreased LVEF. PPM interrogation: no arrhythmias. Code(s): I50.43 - ACUTE ON CHRONIC COMBINED SYSTOLIC AND DIASTOLIC HRT FAIL (2) Anemia Code(s): D64.9 - ANEMIA, UNSPECIFIED (3) HTN (hypertension) Code(s): I10 - ESSENTIAL (PRIMARY) HYPERTENSION (4) History of permanent cardiac pacemaker placement Code(s): Z95.0 - PRESENCE OF CARDIAC PACEMAKER (5) Hyperlipidemia Code(s): E78.5 - HYPERLIPIDEMIA, UNSPECIFIED (6) S/P CABG (coronary artery bypass graft) Code(s): Z95.1 - PRESENCE OF AORTOCORONARY BYPASS GRAFT
[2018-11-27] MEDS: FUROSEMIDE 40 MG/4 ML INJECTABLE VIAL IVPUSH SCH (14:38)
--- NOTE | 2018-11-27 19:24 | PN ---
Physical Exam: SUBJECTIVE: Patient seen and examined, feeling good today. OBJECTIVE: Vital Signs Period Temp Pulse Resp BP Sys/Eugene Pulse Ox Last 24 Hr 97.6 F-98.3 F 65-73 20-20 102-123/45-75 98-98 GENERAL: The patient is awake, alert, and fully oriented, in no acute distress, lying comfortably in bed. HEAD: Normal with no signs of trauma. EYES: Extraocular movements intact ENT: Oropharynx clear without exudates, moist mucous membranes. NECK: Trachea midline, full range of motion, supple. LUNGS: Occasional crackles, no wheezes, no accessory muscle use. HEART: Regular rate and rhythm, S1, S2 without murmur, rub or gallop. ABDOMEN: Soft, nontender, normoactive bowel sounds, no guarding, no rebound, edema present, bulging in epigastrium when coughing. EXTREMITIES: 2+ pulses, warm, 1+ edema NEUROLOGICAL: Normal speech, non focal, gait not observed. PSYCH: Normal mood, normal affect. SKIN: Warm, dry, venous stasis changes in lower extremity b/l, vertical scar in mid chest. Laboratory Results - last 24 hr 11/26/18 11/27/18 11/27/18 05:48 05:40 05:40 WBC 4.4 RBC 3.30 L Hgb 10.4 L Hct 31.0 L MCV 93.8 MCH 31.7 MCHC 33.7 RDW 16.0 H Plt Count 85 L MPV 10.7 Absolute Neuts (auto) 2.9 Neutrophils % 64.9 Neutrophils % (Manual) 61.0 Band Neutrophils % 0.0 Lymphocytes % 29.9 Lymphocytes % (Manual) 33.7 D Monocytes % 4.2 Monocytes % (Manual) 5 Eosinophils % 0.4 Eosinophils % (Manual) 0.0 Basophils % 0.6 Basophils % (Manual) 0.0 Myelocytes % (Man) 0 Promyelocytes % (Man) 0 Blast Cells % (Manual) 0 Nucleated RBC % 0 Metamyelocytes 0 Hypochromia 0 Platelet Estimate Decreased Poikilocytosis 1+ Anisocytosis 1+ Microcytosis 1+ Macrocytosis 1+ Ovalocytes 1+ Schistocytes 1+ Sodium 141 Potassium 3.8 Chloride 102 Carbon Dioxide 33 H Anion Gap 6 L BUN 38 H Creatinine 1.5 H Creat Clearance w eGFR 44.17 Random Glucose 108 H Calcium 9.4 Iron 38 TIBC 259 Iron Saturation 15 Total Bilirubin 0.8 AST 13 L ALT 12 L Alkaline Phosphatase 61 Total Protein 5.9 L Albumin 3.3 L Active Medications Generic Name Dose Route Start Last Admin Trade Name Eusebio PRN Reason Stop Dose Admin Atorvastatin Calcium 20 mg 11/25/18 22:00 11/26/18 21:46 Lipitor - PO 20 mg HS OCTAVIO Administration Furosemide 20 mg 11/27/18 12:44 11/27/18 14:38 Lasix Injection - IVPUSH 20 mg BID@0600,1400 OCTAVIO Administration Heparin Sodium (Porcine) 5,000 unit 11/25/18 22:00 11/27/18 13:33 Heparin - SQ 5,000 unit TID OCTAVIO Administration Pantoprazole Sodium 20 mg 11/26/18 06:00 11/27/18 09:50 Protonix - PO 20 mg DAILY OCTAVIO Administration Sertraline HCl 25 mg/ 75 mg 11/26/18 10:00 11/27/18 09:49 Sertraline HCl 50 mg PO 75 mg DAILY OCTAVIO Administration Solifenacin 5 mg 11/26/18 10:00 11/27/18 09:49 Vesicare - PO 5 mg DAILY OCTAVIO Administration Spironolactone 25 mg 11/26/18 10:00 11/27/18 09:50 Aldactone - PO 25 mg DAILY OCTAVIO Administration Tamsulosin HCl 0.4 mg 11/26/18 10:00 11/27/18 09:50 Flomax - PO 0.4 mg DAILY OCTAVIO Administration ASSESSMENT/PLAN: The patient is 88 year old male with a PMH of systolic CHF, triple bypass surgery in 1997, s/p pacemaker, HTN, hyperlipidemia, anemia admitted to telemetry for acute on chronic CHF exacerbation. Acute CHF exacerbation: -likely due to non compliance to medications, also r/o acs -ECHO reviewed, -f/u Cardiology recommendations, [employer] interrogated-no acute events -cardiac monitoring -strict I&Os, over 5L output -daily weights -low sodium diet -given Lasix 40 mg IV BID decreased to 20 mg today -cont Spironolactone 25 mg daily SHILPA: -elevated Cr on admission, still not improves -held MICHELLE-will get renal US to r/o obstruction Troponinemia: -likely due to demand ischemia -stable trend SHILPA: -likely prerenal -will cont to avoid nephrotoxins -abdominal US ordered CAD/HTN: -cont home medications hyperlipidemia: -continue statins BPH: -cont Flomax Depression: -cont Sertraline DVT PPX; Heparin sq Dispo: telemetry monitoring Problem List - Problems (1) Acute on chronic systolic and diastolic heart failure, NYHA class 2 Code(s): I50.43 - ACUTE ON CHRONIC COMBINED SYSTOLIC AND DIASTOLIC HRT FAIL (2) Anemia Code(s): D64.9 - ANEMIA, UNSPECIFIED (3) CAD (coronary artery disease) Code(s): I25.10 - ATHSCL HEART DISEASE OF [place] CORONARY ARTERY W/O ANG PCTRS (4) CHF exacerbation Code(s): I50.9 - HEART FAILURE, UNSPECIFIED (5) HTN (hypertension) Code(s): I10 - ESSENTIAL (PRIMARY) HYPERTENSION (6) History of permanent cardiac pacemaker placement Code(s): Z95.0 - PRESENCE OF CARDIAC PACEMAKER (7) Hyperlipidemia Code(s): E78.5 - HYPERLIPIDEMIA, UNSPECIFIED (8) Malfunction of cardiac pacemaker battery Code(s): T82.191A - [facility] COMPL OF CARDIAC PULSE GENERATOR (BATTERY), INIT ENCNTR Visit type - Emergency Visit Emergency Visit: Yes ED Registration Date: 11/25/18 Care time: The patient presented to the Emergency Department on the above date and was hospitalized for further evaluation of their emergent condition. - New Patient This patient is new to me today: No - Critical Care Critical Care patient: No - Discharge Referral Referred to [facility] Med P.C.: No
--- NOTE | 2018-11-27 19:28 | PN ---
Teaching Attending Note Name of Resident: Susannah Post ATTENDING PHYSICIAN STATEMENT I saw and evaluated the patient. I reviewed the resident's note and discussed the case with the resident. I agree with the resident's findings and plan as documented. SUBJECTIVE: Mr Denny says he is feeling much better today. Denies cp, sob, n /v. Says his leg swelling is much improved. OBJECTIVE: Gen: nad Pulm: ctab w/o w/r/r CV: rrr w/o m/r/g Abd: +bs, s/nt/nd Ext: 1+ BLE edema ASSESSMENT AND PLAN: -patient much improved -continue IV lasix -continue current management -possible discharge tomorrow Problem List - Problems (1) Acute on chronic diastolic CHF (congestive heart failure) Code(s): I50.33 - ACUTE ON CHRONIC DIASTOLIC (CONGESTIVE) HEART FAILURE (2) HTN (hypertension) Code(s): I10 - ESSENTIAL (PRIMARY) HYPERTENSION (3) History of permanent cardiac pacemaker placement Code(s): Z95.0 - PRESENCE OF CARDIAC PACEMAKER (4) Hyperlipidemia Code(s): E78.5 - HYPERLIPIDEMIA, UNSPECIFIED (5) Urinary tract infection Code(s): N39.0 - URINARY TRACT INFECTION, SITE NOT SPECIFIED Qualifiers: Hematuria presence: with hematuria
[2018-11-27] MEDS: ATORVASTATIN CA 20 MG TABLET (FP) PO SCH (21:47)
[2018-11-28] MEDS: HEPARIN NA (PORCINE) 5,000 UNITS/ML 1ML VIAL SQ SCH ×2 (06:22→15:20)
[2018-11-28] MEDS: FUROSEMIDE 40 MG/4 ML INJECTABLE VIAL IVPUSH SCH ×2 (06:22→15:20)
[2018-11-28 07:09] LABS: BASO % 0.4 % (0-2.0); EOS % 0.6 % (0-4.5); HEMATOCRIT 28.5 % (35.4-49); HEMOGLOBIN 9.6 GM/dL (11.7-16.9); LYMPH % 30.6 % (8-40); MCH 31.8 pg (25.7-33.7); MCHC 33.7 g/dl (32.0-35.9); MEAN CELL VOLUME 94.2 fl (80-96); MONO % 3.9 % (3.8-10.2); NEUT % 64.5 % (42.8-82.8); PLATELET COUNT 81 K/MM3 (134-434); RBC 3.03 M/mm3 (4.00-5.60); RDW 16.2 % (11.9-15.9); WHITE BLOOD COUNT 4.6 K/mm3 (4.0-10.0)
[2018-11-28 07:42] LABS: ALBUMIN 3.1 g/dl (3.4-5.0); ALK PHOS 58 U/L (45-117); ANION GAP 7 MMOL/L (8-16); BILIRUBIN,TOTAL 0.8 mg/dL (0.2-1); BLOOD UREA NITROGEN 35 mg/dL (7-18); CALCIUM 8.9 mg/dL (8.5-10.1); CHLORIDE 101 mmol/L (98-107); CO2 34 mmol/L (21-32); CREATININE 1.4 mg/dL (0.55-1.3); GLUCOSE,RANDOM 116 mg/dL (74-106); MAGNESIUM 1.8 mg/dL (1.8-2.4); PHOSPHOROUS 2.6 mg/dL (2.5-4.9); POTASSIUM 3.7 mmol/L (3.5-5.1); SGOT/AST 11 U/L (15-37); SGPT/ALT 10 U/L (13-61); SODIUM 141 mmol/L (136-145); TOT PROT 5.6 g/dl (6.4-8.2)
[2018-11-28] MEDS ORDERED: SERTRALINE HCL 25 MG TABLET (FP) ONE (10:49)
[2018-11-28] MEDS ORDERED: SERTRALINE HCL 50 MG TABLET (FP) ONE (10:49)
[2018-11-28] MEDS: TAMSULOSIN HCL 0.4 MG CAP PO SCH (10:57)
[2018-11-28] MEDS: SERTRALINE HCL PO SCH (10:57)
[2018-11-28] MEDS: PANTOPRAZOLE 20 MG TABLET (FP) PO SCH (10:57)
[2018-11-28] MEDS: SPIRONOLACTONE 25 MG TABLET (FP) PO SCH (10:58)
[2018-11-28] MEDS: SOLIFENACIN SUCCINATE 5 MG TAB (FP) PO SCH (10:58)
[2018-11-28 11:24] LABS: ANISOCYTOSIS 0; MACROCYTOSIS 1+; OVALOCYTE 1+; PLATELET ESTIMATE DECREASED
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
--- NOTE | 2018-11-28 14:18 | DS ---
Physical Exam: SUBJECTIVE: Patient seen and examined, feeling better today. OBJECTIVE: Vital Signs Period Temp Pulse Resp BP Sys/Eugene Pulse Ox Last 24 Hr 97.6 F-98.0 F 63-78 20-24 90-121/38-64 97-98 PHYSICAL EXAM GENERAL: The patient is awake, alert, and fully oriented, in no acute distress, sitting in bed. HEAD: Normal with no signs of trauma. EYES: Extraocular movements intact ENT: Oropharynx clear without exudates, moist mucous membranes. NECK: Trachea midline, full range of motion, supple. LUNGS: Occasional crackles, no wheezes, no accessory muscle use. HEART: Regular rate and rhythm, S1, S2 without murmur, rub or gallop. ABDOMEN: Soft, nontender, normoactive bowel sounds, no guarding, no rebound, bulging in epigastrium when coughing. EXTREMITIES: 2+ pulses, warm, trace edema NEUROLOGICAL: Normal speech, non focal, gait not observed. PSYCH: Normal mood, normal affect. SKIN: Warm, dry, venous stasis changes in lower extremity b/l, vertical scar in mid chest. LABS Laboratory Results - last 24 hr 11/28/18 11/28/18 05:30 05:30 WBC 4.6 RBC 3.03 L Hgb 9.6 L Hct 28.5 L MCV 94.2 MCH 31.8 MCHC 33.7 RDW 16.2 H Plt Count 81 L MPV 10.0 Absolute Neuts (auto) 2.9 Neutrophils % 64.5 Neutrophils % (Manual) 69.3 Band Neutrophils % 0.0 Lymphocytes % 30.6 Lymphocytes % (Manual) 25.7 D Monocytes % 3.9 Monocytes % (Manual) 4 Eosinophils % 0.6 Eosinophils % (Manual) 0.0 Basophils % 0.4 Basophils % (Manual) 1.0 D Myelocytes % (Man) 0 Promyelocytes % (Man) 0 Blast Cells % (Manual) 0 Nucleated RBC % 0 Metamyelocytes 0 Hypochromia 0 Platelet Estimate Decreased Polychromasia 0 Poikilocytosis 2+ Anisocytosis 0 Microcytosis 0 Macrocytosis 1+ Ovalocytes 1+ Schistocytes 1+ Sodium 141 Potassium 3.7 Chloride 101 Carbon Dioxide 34 H Anion Gap 7 L BUN 35 H Creatinine 1.4 H Creat Clearance w eGFR 47.83 Random Glucose 116 H Calcium 8.9 Phosphorus 2.6 Magnesium 1.8 Total Bilirubin 0.8 AST 11 L ALT 10 L Alkaline Phosphatase 58 Total Protein 5.6 L Albumin 3.1 L HOSPITAL COURSE: The patient is 88 year old male with a PMH of systolic CHF, triple bypass surgery in 1997, s/p pacemaker 2017, HTN, hyperlipidemia, anemia, that presented to the hospital referred by his Trailer Tank Truck Driver. He has been complaining of SOB that has been progressively worse for the past 2 months, associated with worsened lower extremity swelling up to his abdomen. He has been sleeping on 3 pillows for long time and reports increased SOB with minimal physical activity. He denies recent medication changes and states that since his is in the hospital and then rehab, he hasn't been complaint with low sodium diet and medications. He reports weight gain recently but doesn't know how much exactly. The patient denies chest pain, palpitations, dizziness, LOC. He ambulates with walker and lives alone. He was admitted to telemetry for CHF exacerbation and SHILPA. He was sen by Cardiology, had ECHO done that didn't show any acute abnormalities, PPM interrogated ([facility]), no events. He was treated with Lasix 40 mg IV BID and we also continued his home medications. He achieved significant output and Lasix was decreased to 20 mg IV BID. The patient also had renal US that also didn't visualize any obstruction, pathology. We resumed Lisinopril and he was discharged with recommendation to hade close follow up with his PCP and Trailer Tank Truck Driver. Date of Admission:11/25/18 Date of Discharge: 11/28/18 Minutes to complete discharge: 35 Discharge Summary Reason For Visit: ACUTE ON CHRONIC DIASTOLIC CONGESTIVE HEART FAILUR Current Active Problems Acute on chronic diastolic CHF (congestive heart failure) (Acute) Condition: Good - Instructions Diet, Activity, Other Instructions: Mr Denny, you were admitted to the hospital for heart failure exacerbation. Please continue to take Lasix 20 mg daily, the same dose as you were taking before coming to the hospital. We also found that you have urinary tract infection. Please continue to take Cefpodoxime 200 mg twice a day for 10 days. Please check your weight everyday. If you notice weight gain more than 3 lbs in a short period of time you should call your doctor. Please follow up low sodium diet. REFERRALS: Please see your primary care physician in a week. We would like you to have BMP (basic metabolic panel ) checked in a week to monitor your kidney function. Please see Trailer Tank Truck Driver in a week. If you have shortness of breath, chest pain, fever, chills, come back to Emergency Room as soon as possible. Referrals: Juan Carlos Wang MD [Staff Physician] - Felix García MD [Staff Physician] - Disposition: VNS/HOME HEALTH CARE - Home Medications Comprehensive Discharge Medication List: Ambulatory Orders Lisinopril [Prinivil -] 10 mg PO DAILY 09/06/14 Oxybutynin Chloride [Ditropan Xl] 5 mg PO DAILY 09/06/14 Omeprazole 20 mg PO DAILY 06/17/15 Simvastatin 10 mg PO HS 06/17/15 Tamsulosin HCl 0.4 mg PO DAILY 06/17/15 Calcium Citrate/Vitamin D3 [Calcium Citrate - Vit D Caplet] 1 each PO DAILY 03/14 Cyanocobalamin (Vitamin B-12) [B-12] 1,000 mcg PO DAILY 06/05/17 Furosemide [Lasix -] 20 mg PO DAILY 06/05/17 Spironolactone 25 mg PO DAILY 06/05/17 Vit D3-Vit K/Berberine/Hops [Ostera Tablet] 1 each PO DAILY 06/05/17 Metoprolol Tartrate 75 mg PO DAILY 11/25/18 Sertraline HCl 75 mg PO DAILY 11/25/18 Cefpodoxime Proxetil [Vantin -] 200 mg PO Q12H 10 Days #20 tablet 11/28/18 Problem List - Problems (1) Acute on chronic systolic and diastolic heart failure, NYHA class 2 Code(s): I50.43 - ACUTE ON CHRONIC COMBINED SYSTOLIC AND DIASTOLIC HRT FAIL (2) Anemia Code(s): D64.9 - ANEMIA, UNSPECIFIED (3) CAD (coronary artery disease) Code(s): I25.10 - ATHSCL HEART DISEASE OF [place] CORONARY ARTERY W/O ANG PCTRS (4) CHF exacerbation Code(s): I50.9 - HEART FAILURE, UNSPECIFIED (5) HTN (hypertension) Code(s): I10 - ESSENTIAL (PRIMARY) HYPERTENSION (6) History of permanent cardiac pacemaker placement Code(s): Z95.0 - PRESENCE OF CARDIAC PACEMAKER (7) Hyperlipidemia Code(s): E78.5 - HYPERLIPIDEMIA, UNSPECIFIED (8) Malfunction of cardiac pacemaker battery Code(s): T82.191A - [facility] COMPL OF CARDIAC PULSE GENERATOR (BATTERY), INIT ENCNTR This patient is new to me today: No Emergency Visit: Yes ED Registration Date: 11/25/18 Care time: The patient presented to the Emergency Department on the above date and was hospitalized for further evaluation of their emergent condition. Critical Care patient: No - Discharge Referral Referred to [facility] Med P.C.: No
[2018-11-28 15:54] VITALS: BP 114/44; PULSE 86; TEMP 98
--- NOTE | 2018-11-28 17:57 | PN ---
Teaching Attending Note Name of Resident: Susannah Post ATTENDING PHYSICIAN STATEMENT I saw and evaluated the patient. I reviewed the resident's note and discussed the case with the resident. I agree with the resident's findings and plan as documented. OBJECTIVE: Last Vital Signs Temp Pulse Resp BP Pulse Ox 36.7 C 86 24 H 114/44 L 97 11/28/18 14:00 11/28/18 14:00 11/28/18 10:45 11/28/18 14:00 11/28/18 09:00 Gen: nad Pulm: ctab w/o w/r/r CV: rrr w/o m/r/g Abd: +bs, s/nt/nd Ext: trace edema CBC, BMP 11/28/18 05:30 11/28/18 05:30 Please refer to discharge summary for full hospital course. Patient is safe for discharge. Can treat UTI as an outpatient and close follow up of renal function. Problem List - Problems (1) Acute on chronic diastolic CHF (congestive heart failure) Code(s): I50.33 - ACUTE ON CHRONIC DIASTOLIC (CONGESTIVE) HEART FAILURE (2) HTN (hypertension) Code(s): I10 - ESSENTIAL (PRIMARY) HYPERTENSION (3) History of permanent cardiac pacemaker placement Code(s): Z95.0 - PRESENCE OF CARDIAC PACEMAKER (4) Hyperlipidemia Code(s): E78.5 - HYPERLIPIDEMIA, UNSPECIFIED (5) Urinary tract infection Code(s): N39.0 - URINARY TRACT INFECTION, SITE NOT SPECIFIED Qualifiers: Hematuria presence: with hematuria
== END 2018-11-28 16:37 | disposition home health service (06) | DRG 682 ==
LOC: JER 13:14 → JERBED 15:51 → J4W 19:49
PROVIDERS: ADMIT Hospitalist; ATTEND Internal Medicine
DX: N17.9 Acute kidney failure, unspecified (principal); I50.43 Acute on chronic combined systolic (congestive) and diastolic (congestive) heart failure; I24.8 Other forms of acute ischemic heart disease; N39.0 Urinary tract infection, site not specified; I11.0 Hypertensive heart disease with heart failure; I25.10 Atherosclerotic heart disease of native coronary artery without angina pectoris; B96.20 Unspecified Escherichia coli [E. coli] as the cause of diseases classified elsewhere; J40 Bronchitis, not specified as acute or chronic; N40.0 Benign prostatic hyperplasia without lower urinary tract symptoms; F43.10 Post-traumatic stress disorder, unspecified; E78.00 Pure hypercholesterolemia, unspecified; D64.9 Anemia, unspecified; K63.5 Polyp of colon; L89.151 Pressure ulcer of sacral region, stage 1; Z87.891 Personal history of nicotine dependence; Z95.0 Presence of cardiac pacemaker; Z95.1 Presence of aortocoronary bypass graft; Z85.46 Personal history of malignant neoplasm of prostate; Z91.14 Patient's other noncompliance with medication regimen
CPT/HCPCS: 36415; 71045-TC-FY; 76700-TC; 76775-TC; 80053; 81003; 82607; 82728; 83540; 83550; 83735; 83880; 84100; 84484; 85025; 85027; 87086; 87186; 93005; 93010; 93306-TC; 93970-TC; 97116-GP; 99284-25; J1644